=== PATIENT | male | born 1975 | race African-American/Black ===

== ENCOUNTER 2020-09-13 16:50 | Emergency (ER) | payer SELFPAY ==
--- NOTE | ~2020-09-13 | XR_ITS ---
EXAMINATION: XR wrist RT min 3V EXAM DATE: 09/13/2020 17:18 INDICATION: Fall, pain and swelling generalized right wrist. Initial encounter. TECHNIQUE: Right wrist frontal, frontal with ulnar deviation, oblique and lateral projections obtain ed and reviewed. There is no prior study for comparison. FINDINGS: Right wrist scapholunate joint space is maintained. There is acute closed posttraumatic tr ansverse fracture through the right radial distal metaphysis extending into the distal radioulnar denice nt. No definite fracture line into the radiocarpal joint. This finding has been indicated, marked on the examination for review, clinical correlation. There is overlying soft tissue swelling. Carpal bon es are unremarkable. IMPRESSION: Acute transverse right radial distal metaphyseal fracture into DRUJ. Reviewed, dictated and finalized at location A. IMPRESSION: Acute transverse right radial distal metaphyseal fracture into LOUANN J.
[2020-09-13 17:01] VITALS: BP 136/89; PULSE 84; RESP 18; TEMP 36.4; O2SAT 99
--- NOTE | 2020-09-13 17:22 | ED.UPPEXIN ---
HPI - Extremity Injury (Upper) General Chief Complaint: Extremity Injury, Upper Stated Complaint: Right wrist pain Time Seen by Provider: 09/13/20 17:22 Source: patient and RN notes reviewed Mode of arrival: ambulatory Limitations: no limitations History of Present Illness HPI narrative: 45-year-old male presents to the [facility] with complaints of right wrist pain after falling backwards and trying to catch himself. States this happened last night .positive radial pulse. Tenderness in the distal radius area with swelling noted. Full range of motion of the thumb, full range of motion in all 4 fingers. Sensation intact in all 5 fingers. Capillary refill under 2 seconds. Has been wearing Christian wrap and has taken ibuprofen for treatment Related Data Home Medications Medication Instructions Recorded Confirmed phentermine 1 mg PO DAILY 09/13/20 09/13/20 topiramate 1 mg PO BID 09/13/20 09/13/20 Allergies Allergy/AdvReac Type Severity Reaction Status Date / Time No Known Allergies Allergy Verified 09/13/20 17:12 Review of Systems Review of Systems: All systems reviewed & are unremarkable except as noted in HPI and below Constitutional: Constitutional: Reports no additional constitutional complaints, Denies chills and Denies fever(s) Eyes: Eyes: Reports no additional eye complaints ENT: Reports system reviewed and no additional complaints, except as documented Cardiovascular: Cardiovascular: Reports no additional cardiovascular complaints and Denies chest pain Respiratory: Respiratory: Reports no additional respiratory complaints, Denies cough and Denies dyspnea Musculoskeletal: Musculoskeletal: Reports as per HPI, Reports arthralgias (Right wrist) and Reports joint swelling (Right breast) Integumentary/Breasts: Skin/Breast: Reports system reviewed and no additional complaints, except as docu and Denies rash Neurologic: Reports system reviewed and no additional complaints, except as documented Psychiatric: Psychiatric: Reports no additional psychiatric complaints Allergic/Immunologic: Allergic/Immunologic: Reports no additional allergic/immunologic complaints [facility] Past Medical History Medical History (Updated 09/13/20 @ 17:35 by Pratibha Sanchez) Closed fracture of right distal radius Social History Social History Gender identity (if verbalized by the patient): Male Comments At the time of my signature, I reviewed and agree with the nursing past medical, surgical, social, and family history. There is no relevant family history pertinent to the patient complaint. Exam Const: General: healthy appearing, no acute distress and alert Nutritional Appearance: well nourished and obese Orientation/consciousness: patient oriented x3 Limitations: no limitations HENMT: Head: normal to inspection Eyes: Pupils: Equal, round and reactive pupils present Neck: Neck: normal visual inspection, no lymphadenopathy and no meningeal signs Chest: Chest palpation & inspection: normal inspection of the chest Resp: Effort & Inspection: normal respiratory effort and no use of accessory muscles Auscultation: clear to auscultation bilaterally, no crackles, no rales, no rhonchi and no wheezes Cardio: Rate: regular rate Rhythm: regular rhythm Skin: General skin exam: normal color Neuro: General: patient oriented x3, moves all extremities, no meningeal signs and no focal motor deficits Speech: normal speech Gait exam (Neuro): Normal gait present Extrem: General: normal to inspection Right upper extremity: wrist abnormal to inspection joint swelling, tenderness of the distal radius, swelling, normal vascular exam and radial pulse present; no unusual warmth, no ecchymosis and no deformity Psych: Appearance: grossly normal and well kempt Mental Status: mental status grossly normal Affect: normal affect Attitude: cooperative Thought content: Yes Normal thought content present Course Course Emergency Course: Discharge
== END 2020-09-13 17:47 | disposition home or self-care (01) ==
PROVIDERS: Emergency Provider Nurse Practitioner; PCP Family Medicine
DX: M25.531 Pain in right wrist (principal); S52.509A Unspecified fracture of the lower end of unspecified radius, initial encounter for closed fracture; W19.XXXA Unspecified fall, initial encounter; Z98.82 Breast implant status
CPT/HCPCS: 29125; 73110; 99214; A4565; G0463

== ENCOUNTER → 2020-12-28 13:04 | Outpatient (CLI) | payer OTHER, SELFPAY ==
--- NOTE | ~2020-12-28 | XR_ITS ---
XR wrist RT min 3V 12/28/2020 13:46 Indication: Follow-up right wrist fracture Procedure: 4 views right wrist Comparison: Comparison to multiple prior studies sequentially, with oldest reviewed study dated 07/2020. Findings: There is a healing transverse fracture distal right radial metaphysis with callus formation and osseous bridging. No significant soft tissue abnormality. No definite intra-articular extension. Stable alignment. Impression: 1: Healing nondisplaced extra-articular fracture right radius at the distal metaphysis. Reviewed, dictated and finalized at location B. Impression: 1: Healing nondisplaced extra-articular fracture right radius at the distal met aphysis.
== END ==
PROVIDERS: Visit Provider Orthopaedic Surgery
DX: S52.551D Other extraarticular fracture of lower end of right radius, subsequent encounter for closed fracture with routine healing (principal); X58.XXXD Exposure to other specified factors, subsequent encounter
CPT/HCPCS: 73110

== ENCOUNTER 2024-08-30 16:40 | Emergency (ER) | payer OTHER, MEDICAID, SELFPAY ==
--- NOTE | 2024-08-30 16:43 | ED_ITS ---
HPI - URI/Sore Throat General Chief Complaint: Upper Respiratory Infection Stated Complaint: Fever,Cold,Cough Time Seen by Provider: 08/30/24 16:43 Source: patient Mode of arrival: ambulatory Limitations: no limitations History of Present Illness HPI Narrative: Aquiles is a 49-year-old male patient presenting to the clinic today with complaints of fever, runny nose, wheezing, and productive cough with some yellow phlegm x1 day. He reports symptoms started yesterday highest fever was 103?. No known sick contacts. Denies any chest pain or shortness of breath currently. Related Data Allergies Allergy/AdvReac Type Severity Reaction Status Date / Time No Known Allergies Allergy Verified 08/30/24 16:42 Review of Systems Review of Systems: Pertinent positives per HPI. Patient denies any rash, headache, visual changes, dizziness,shortness of breath, chest pain, palpitations, nausea, vomiting, diarrhea, constipation, abdominal pain, or any urinary issues. PMFSH Past Medical History Medical History Closed fracture of right distal radius Family History Family History Sibling Heart disease Acute myocardial infarction Social History Social History Smoking status: Never smoker Alcohol intake: current Current Housing: Decline to Answer Concerned About Future Housing: Decline to Answer Difficulty Paying Gas/Electric Bills: Decline to Answer Difficulty Paying for Meds: Decline to Answer Currently Unemployed: Decline to Answer Education: Decline to Answer Difficulty w/ Childcare or Family Care: Decline to Answer Living arrangements: alone Gender identity (if verbalized by the patient): Male Comments At the time of my signature, I reviewed and agree with the nursing past medical, surgical, social, and family history. There is no relevant family history pertinent to the patient complaint. Exam Narrative: General: Well-developed, well nourished, in no apparent distress Head: Normocephalic, atraumatic Eyes: Pupils equally round and reactive to light bilaterally, EOM intact, sclera and conjunctive clear, no discharge, lids normal Ears: Left TMs intact and congested, right TM intact, bulging, red, ear canals clear, no drainage, grossly hearing normal. Nose: Nares patent, clear nasal discharge, severe inflammation, maxillary sinus tenderness. Mouth: Oral pharynx red without lesions or masses, good dentition, MMM. Postnasal drip Neck: Supple, trachea midline, no enlargement of anterior or posterior cervical nodes, no thyroid masses or goiter palpable. Cardio: Regular rate and rhythm, s1 and s2 normal, no murmur appreciated. Resp: Lung sounds slightly diminished in the bases, no rhonchi, rales, wheezing or rubs Course Course Emergency Course: Portions of this record may have been created with voice recognition software. Level of Care: Express Care Visit Vital Signs Vital signs: Vital Signs Temperature 37.2 C 08/30/24 16:50 Pulse Rate 87 08/30/24 16:50 Respiratory Rate 20 08/30/24 16:50 Blood Pressure 149/107 H 08/30/24 16:50 Pulse Oximetry 98 08/30/24 16:50 Oxygen Delivery Room Air 08/30/24 16:50 Temperature 37.2 C 08/30/24 16:50 Pulse Rate 87 08/30/24 16:50 Respiratory Rate 20 08/30/24 16:50 Blood Pressure 149/107 H 08/30/24 16:50 Pulse Oximetry 98 08/30/24 16:50 Oxygen Delivery Room Air 08/30/24 16:50 Vital signs reviewed MDM - URI/Sore Throat MDM Narrative Medical decision making narrative: At the time of visit patient is resting comfortably on the exam table. Patient appears to be nontoxic. Labs: COVID and influenza testing was performed and was negative. Plan: I suspect patient has URI with cough congestion, right otitis media. Prescription for amoxicillin, Tessalon Perles, and albuterol inhaler was sent to the pharmacy. Supportive measures were discussed with the patient and they voiced understanding discharge instructions and agrees to treatment plan. Return precautions reviewed Differential Diagnosis Differential diagnosis: Likely upper respiratory infection, otitis media, sinusitis, viral infection, bronchitis, influenza, pharyngitis and other (COVID) Discharge Plan Discharge Clinical Impression: Upper respiratory infection with cough and congestion Otitis media Qualifiers: Otitis media type: suppurative Chronicity: acute Laterality: right Recurrence: non-recurrent Spontaneous tympanic membrane rupture: without spontaneous rupture Qualified Code(s): H66.001 - Acute suppurative otitis media without spontaneous rupture of ear drum, right ear Patient Disposition: Home Condition: Stable Instructions: Antibiotic Form, Ear Infection (ED), Cold Symptoms (ED) Additional Instructions: COVID and influenza testing was negative in the clinic today. Take prescription medications only as prescribed-amoxicillin May take Coricidin HBP for cold/flu symptoms May take Tessalon Perles as needed for cough Increase fluids and stay well hydrated Tylenol/motrin for pain/fever Flonase and OTC antihistamines as directed Vicks vapor rub to open sinuses Sinus rinses for congestion Cepacol spray, cough drops, throat lozenges, warm tea with honey/lemon, gargle salt water to soothe throat BRAT diet for diarrhea Clear liquids x 24 hours then advance as tolerated for nausea/vomiting Go to the ED if you develop a worsening in your condition- high fever not controlled by Tylenol or Motrin, dehydration, weakness, lethargy, shortness of breath, or chest pain. Follow up with your PCP in 3-5 days if symptoms persist. Patient Language: Frisian Prescriptions: New amoxicillin 875 mg tablet 875 mg PO Q12H 10 Days Qty: 20 0RF benzonatate 200 mg capsule 200 mg PO TID 7 Days Qty: 21 0RF albuterol sulfate 90 mcg/actuation HFA aerosol inhaler 2 puff inhalation Q4-6H PRN (Reason: shortness of breath or wheezing) 30 Days Qty: 8.5 0RF No Action topiramate 50 mg tablet 50 mg PO BID Qty: 180 2RF amlodipine 10 mg tablet 10 mg PO DAILY Qty: 90 2RF cholecalciferol (vitamin D3) 50 mcg (2,000 unit) capsule 100 mcg PO DAILY Qty: 180 0RF phentermine 37.5 mg tablet 37.5 mg PO DAILY Qty: 30 0RF Follow-up/Referrals: Scott Garcia MD [Primary Care Provider] - Stand Alone Forms: Work/School Release IP Time of Disposition: 16:58 Quality NIHSS Nursing Documentation ED NIHSS nursing documentation: reviewed/agree
[2024-08-30 16:50] VITALS: BP 149/107; PULSE 87; RESP 20; TEMP 37.2; O2SAT 98
[2024-08-30 17:06] LABS: EDCOVIDSCREEN Negative (Negative); EDINFLUASCREEN Negative (Negative); EDINFLUBSCREEN Negative (Negative)
== END 2024-08-30 17:05 | disposition home or self-care (01) ==
PROVIDERS: Emergency Provider Nurse Practitioner Family; PCP Emergency Medicine
DX: J06.9 Acute upper respiratory infection, unspecified (principal); H66.001 Acute suppurative otitis media without spontaneous rupture of ear drum, right ear; Z20.822 Contact with and (suspected) exposure to COVID-19
CPT/HCPCS: 87426; 87804; 99213; G0463